=== PATIENT | female | born 1985 | race African-American/Black ===

== ENCOUNTER 2017-02-18 21:43 | Emergency (ER) | payer SELFPAY ==
[~2017-02-18 21:43] MED LIST: AMOXICILLIN500 M1 PO; BENTYL20 MG DOB; DIFLUCAN PO; DULCOLAX5 MG PO; HYCODAN60 ML 5MG/ DOB; MOBIC PO; NAPROSYN500 MG PO; PHENERGAN PO; ROBITUSSIN A-C S5 ML PO; TRAMADOL HCL50 M1 PO
[2017-02-18] MEDS ORDERED: NO MEDICATIONS (21:54)
[2017-02-18 22:16] LABS: URINE SOURCE CLEAN CATCH
[2017-02-18 22:19] LABS: MICRO INDICATED? YES; URINE APPEARANCE HAZY; URINE BILIRUBIN NEG (NEG); URINE BLOOD TRACE-INTACT (NEG); URINE COLOR YELLOW; URINE GLUCOSE NEG (NORM); URINE KETONE NEG (NEG); URINE LEUKOCYTE ESTERASE TRACE (NEG); URINE NITRATE NEG (NEG); URINE PH 6.5 (5-8); URINE PROTEIN NEG (NEG); URINE UROBILINOGEN 0.2 MG/DL (NORM)
[2017-02-18 22:21] LABS: CULTURE INDICATED? YES; URINE BACTERIA 1+ (NEG); URINE RBC 0-2 /[HPF] (0-2); URINE SQUAMOUS EPITHELIAL CELL MODERATE /[HPF]; URINE TRANSITIONAL EPI CELLS FEW /[HPF]
[2017-02-18 22:29] LABS: BUN/CREATININE RATIO 11.25; CALCIUM SERUM 9.2 mg/dL (8.4-10.2); CREATININE SERUM 0.8 mg/dL (0.6-1.4); GLOM FILT RATE Estimated 112.4 mL/min (>60); POTASSIUM 3.5 mmol/L (3.5-5.1)
== END 2017-02-18 23:32 | disposition home or self-care (01) ==
LOC: SED 21:43
PROVIDERS: Emergency Medicine
DX: K29.00 Acute gastritis without bleeding (principal); G43.909 Migraine, unspecified, not intractable, without status migrainosus; F17.210 Nicotine dependence, cigarettes, uncomplicated; Z88.8 Allergy status to other drugs, medicaments and biological substances
CPT/HCPCS: 36415; 80048; 81003; 84703; 87086; 96361; 96374; 96375; 99284; J2405